=== PATIENT | female | born 1955 | race Caucasian/White ===

== ENCOUNTER → 2017-06-01 | Outpatient (CLI) | payer BC | END | disposition home or self-care (01) | LOC: KCIC MAMMO 11:23 | DX: Z12.31 Encounter for screening mammogram for malignant neoplasm of breast (principal) | CPT/HCPCS: 77067 ==

== ENCOUNTER 2018-04-26 07:55 | Emergency (ER) | payer BC ==
[~2018-04-26] VITALS: Ht 162.6 cm; Wt 52.2 kg
[2018-04-26 08:00] VITALS: BP 158/89
--- NOTE | 2018-04-26 08:22 | PHYS DOC ---
Adult General Chief Complaint Chief Complaint: HAND PROBLEM HPI HPI Patient is a 63 year old presented to the ER today for evaluation of right hand problem. Patient said she woke up this morning, having trouble adducting her right 4th and 5th fingers together and also they seems to stay pending mildly. 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 Patient said she has some pain in her right wrist area on the ulnar side for a while. Patient denied any recent injury but injured her right wrist 5 years ago and never seen a doctor for it. Patient denied any swelling. 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 Patient denied any headache, no blurry vision, no weakness or numbness any where, no slurred speech. Review of Systems Review of Systems Constitutional: Denies fever or chills [] Eyes: Denies change in visual acuity, redness, or eye pain [] HENT: Denies nasal congestion or sore throat [] Respiratory: Denies cough or shortness of breath [] Cardiovascular: No additional information not addressed in HPI [] GI: Denies abdominal pain, nausea, vomiting, bloody stools or diarrhea [] : Denies dysuria or hematuria [] Musculoskeletal: Denies back pain or joint pain [] Integument: Denies rash or skin lesions [] Neurologic: Denies headache, focal weakness or sensory changes [] Endocrine: Denies polyuria or polydipsia [] All other systems were reviewed and found to be within normal limits, except as documented in this note. Allergies Allergies Allergies Coded Allergies Type Severity Reaction Last Updated Verified No Known Drug Allergies 04/26/18 No Physical Exam Physical Exam Constitutional: Well developed, well nourished, no acute distress, non-toxic appearance. [] HENT: Normocephalic, atraumatic, bilateral external ears normal, nose normal. [] Eyes: PERRLA, EOMI, conjunctiva normal, no discharge. [] Neck: Normal range of motion, no tenderness, supple, no stridor. [] Cardiovascular:Heart rate regular rhythm, no murmur [] Skin: Warm, dry, no erythema, no rash. [] Back: No tenderness, no CVA tenderness. [] Extremities: No tenderness, no cyanosis, no clubbing, ROM intact, no edema. Patient can flex or extend all fingers on right hand, Patient can abduct but having slight trouble of adduct the right 4th and 5th fingers. Patient can do it eventually when she tried harder. There is no swelling or redness of right wrist. Neurologic: Alert and oriented X 3, normal motor function, normal sensory function, no focal deficits noted. [] Psychologic: Affect normal, judgement normal, mood normal. [] Current Patient Data Vital Signs Vital Signs Date Time Temp Pulse Resp B/P (MAP) Pulse Ox O2 Delivery O2 Flow Rate FiO2 04/26/18 08:00 97.8 63 14 158/89 (112) 100 Room Air 97.8 EKG EKG [] Radiology/Procedures Radiology/Procedures [] Course & Med Decision Making Course & Med Decision Making Pertinent Labs and Imaging studies reviewed. (See chart for details) Patient appeared to have mild case of DUPUYTRENT CONTRACTURE. SHE WILL NEED TO FOLLOW UP WITH A HAND SPECIALIST FOR FURTHER EVALUATION AND TREATMENT . Dragon Disclaimer Dragon Disclaimer This electronic medical record was generated, in whole or in part, using a voice recognition dictation system. Departure Departure Impression: Primary Impression: Dupuytren's contracture of right hand Disposition: HOME, SELF-CARE Condition: STABLE Referrals: PARI GRANGER DO (PCP) please follow up with your doctor for a referal to a hand specialist for further evaluation. Patient Instructions: Dupuytren's Contracture ARTURO HORTA DO Apr 26, 2018 08:22
== END 2018-04-26 08:30 | disposition home or self-care (01) ==
LOC: ER 07:55
DX: M72.0 Palmar fascial fibromatosis [Dupuytren] (principal)
CPT/HCPCS: 99281